=== PATIENT | male | born 1945 | race Caucasian/White ===

== ENCOUNTER 2017-06-09 18:48 | Emergency (ER) | payer OTHER, MEDICARE ==
[~2017-06-09] VITALS: Ht 180.3 cm; Wt 90.3 kg
[~2017-06-09 18:48] MED LIST: AMLO-110 PO; BUPR-79 PO; CLON0.5T3 PO; CZR50 PO; FLNIN NAE; HYDC25 PO; MULT-506 PO; ONDA4TAB46 PO; PANT40TA PO; SIMV40TA2 PO; TIMO0.2527; TRVOPS OP
[2017-06-09 18:56] VITALS: BP 151/80; PULSE 84; TEMP 36.5; O2SAT 94; Ht 180.3 cm; Wt 90.3 kg
[2017-06-09] MEDS ORDERED: PROPARACAINE HCL 0.5% OP SOLN 15 ML BTL ONE (19:07)
[2017-06-09] MEDS ORDERED: MONT1TAB5 PO (19:19)
[2017-06-09] MEDS ORDERED: TAMS0.4C38 PO (19:19)
[2017-06-09] MEDS ORDERED: LOSA100T65 PO (19:19)
[2017-06-09] MEDS ORDERED: PRLSR20 PO (19:19)
[2017-06-09] MEDS ORDERED: MELO7.5T5 PO (19:19)
[2017-06-09] MEDS ORDERED: ASPI81TA28 PO (19:19)
[2017-06-09] MEDS ORDERED: ACET-1256 PO (19:19)
[2017-06-09] MEDS ORDERED: GABA-112 PO ×2 (19:19)
[2017-06-09] MEDS ORDERED: DICL1GEL12 TOP (19:19)
[2017-06-09] MEDS ORDERED: ATOR-24 PO (19:19)
[2017-06-09] MEDS ORDERED: NORCO 5/325MG HOME PACK PO ONE (19:30)
[2017-06-09] MEDS ORDERED: CIPROFLOXACIN HCL 0.3% OP SOLN 2.5 ML BTL OP ONE (19:30)
--- NOTE | 2017-06-10 23:35 | EMERGENCY ROOM VISIT NOTE ---
ED Visit Note First contact with patient: 19:02 Chief Complaint: I feel like something in my left eye. History of Present Illness: History on this is 72-year-old white male who ambulates into the ED complaining of a foreign body sensation to the left eye. Historically he reports he is status post Lasix surgery. Patient reports approximately one hour ago he was working on his lawnmower when he felt like a piece of the lawnmower or debris came up and struck his left eye. Prior to arrival at the hospital he does live by a nurse that works at a local urgent care center and he reported that she irrigated his eye. Currently he is complaining of pain over the superior aspect of the left eye. He rates this discomfort 2/10. It worsens with palpation. He has not identified any alleviating factors related to the pain. He has not taken a medication for pain prior to arrival at the hospital. Associated with his pain he reports he has blurry vision and has noted swelling and redness of the upper eyelid, light sensitivity and tearing. He denies fevers, chills, sweats, bleeding, decrease in his overall vision, headache, vomiting. Additionally he denies any previous eye injuries and does report he just had a director of web marketing examination last week and it was normal. Review of Systems: As noted above in history of present illness. Past Medical History: As previously noted, hypertension, GERD, status post cholecystectomy. Current Medications: Medications Dose Route/Sig Max Daily Dose Days Date Category Aspirin Ec (Aspirin) 81 Mg Tab 81 Mg PO DAILY 06/09/17 Reported Voltaren 1% Top Gel (Diclofenac Sodium (Topical)) 1 % Gel 2 Gm TOP QID PRN 06/09/17 Reported Tylenol (Acetaminophen) 500 Mg Tab 500 Mg PO DAILY PRN 06/09/17 Reported Prilosec (Omeprazole) 20 Mg Capcr 20 Mg PO BID 06/09/17 Reported Cozaar (Losartan Potassium) 100 Mg Tab 100 Mg PO DAILY 06/09/17 Reported Lipitor (Atorvastatin Calcium) 40 Mg Tab 40 Mg PO DAILY 06/09/17 Reported Neurontin (Gabapentin) 100 Mg Cap 100 Mg PO QPM 06/09/17 Reported Neurontin (Gabapentin) 100 Mg Cap 300 Mg PO QAM 06/09/17 Reported Mobic (Meloxicam) 7.5 Mg Tab 7.5 Mg PO DAILY 06/09/17 Reported Flomax (Tamsulosin Hcl) 0.4 Mg Cap 0.4 Mg PO DAILY 06/09/17 Reported Montelukast Sodium 10 Mg Tab 10 Mg PO HS 90 06/09/17 Reported Klonopin (Clonazepam) 0.5 Mg Tab 0.5 Mg PO BID PRN 04/06/10 Reported Wellbutrin Sr (Bupropion HCl) 150 Mg Ertab 150 Mg PO DAILY 04/06/10 Reported Norvasc (Amlodipine Besylate) 5 Mg Tab 5 Mg PO DAILY 04/06/10 Reported Multivitamin (Multivitamins) Tab 1 Tab PO DAILY 07/26/06 Reported Allergies to Medications: Jaylen inhibitors and prednisone. Social History: Patient is currently retired; he feels safe in his home environment; he denies tobacco use and admits to alcohol use. Physical Examination: Vital Signs: Date Time Temp Pulse Resp B/P (MAP) Pulse Ox O2 Delivery O2 Flow Rate FiO2 06/09/17 18:56 36.5 84 16 151/80 94 Room Air GENERAL: 72-year-old male in mild distress due to pain, nontoxic-appearing, afebrile and hemodynamically stable. NEUROLOGICAL: Awake, alert and oriented to person, place and time. Answering questions appropriately and following commands. SKIN: Warm, dry and pink. No soft tissue trauma noted. HEENT: Atraumatic and normocephalic. Left upper eyelid is mildly erythematous and edematous. Patient was extremely light sensitive until Alcaine was anesthetized the eyes. Additionally he had moderate tearing of the eye. No foreign material were noted under the eyelids are embedded in the cornea. The anterior chamber was clear. PERRLA. EOMI without nystagmus. On slit lamp examination with staining patient has an oval-shaped corneal abrasion extending from the 11 to 1 o'clock position over the iris. Visual acuity: Patient was not able to perform a visual acuity test on the affected eye due to light sensitivity. ED Course: Patient is assessed as noted above. Patient's medication list was reviewed. 2 drops of Ciloxan was placed in the left eye for antibiotic coverage. Patient was educated about today's findings and instructed on his treatment plan ; he verbalized understanding and agreement with this plan. Clinical Impression: Acute left corneal abrasion. Disposition: Patient discharged home in stable condition accompanied by female friends; prior to departure he was reassessed and subjectively rated his discomfort 1/10. He also reported decreasing light sensitivity and tearing. Plan: Patient was encouraged use 2 drops of Ciloxan in his left eye every 4 hours while awake for 5 days. Patient was placed on a sliding pain scale of ibuprofen, acetaminophen and [place] ; he was given appropriate narcotic precautions and his name was checked and state database and no red flags were noted. Patient was encouraged to follow-up with his personal director of web marketing or return emergency department in 36-48 hours for recheck. Patient was encouraged return ED sooner for worsening/uncontrolled pain, fevers , headaches, vomiting, worsening visual changes or any new/concerning symptoms.
== END 2017-06-09 19:38 | disposition home or self-care (01) ==
LOC: C.EDB 18:50 → C.EDD 19:38
DX: S05.02XA Injury of conjunctiva and corneal abrasion without foreign body, left eye, initial encounter (principal); W22.8XXA Striking against or struck by other objects, initial encounter; Y93.H9 Activity, other involving exterior property and land maintenance, building and construction; Y99.8 Other external cause status; I10 Essential (primary) hypertension; K21.9 Gastro-esophageal reflux disease without esophagitis; Z90.49 Acquired absence of other specified parts of digestive tract; Z79.82 Long term (current) use of aspirin; Z79.899 Other long term (current) drug therapy